=== PATIENT | male | born 1975 | race American Indian/Alaskan Native ===

== ENCOUNTER 2020-04-22 11:57 | Emergency (ER) | payer SELFPAY ==
--- NOTE | 2020-04-22 12:18 | Emergency Department Report ---
Blank Doc - Documentation Documentation: 44-year-old male that presents with uncontrolled HTN and flank pain. This initial assessment/diagnostic orders/clinical plan/treatment(s) is/are subject to change based on patient's health status, clinical progression and re- assessment by fellow clinical providers in the ED. Further treatment and workup at subsequent clinical providers discretion. Patient/guardians urged not to elope from the ED as their condition may be serious if not clinically assessed and managed. Initial orders include: 1- Patient sent to [facility] for further evaluation and treatment 2- labs/UA- r/o HTN emergency
[2020-04-22 12:55] LABS: Basophils % (Auto) 0.5 % (0.0-1.8); Eosinophils % (Auto) 0.7 % (0.0-4.3); Hematocrit 42.7 % (35.5-45.6); Hemoglobin 14.6 gm/dl (11.8-15.2); Lymphocytes # (Auto) 1.1 K/mm3 (1.2-5.4); Lymphocytes % (Auto) 28.4 % (13.4-35.0); Mean Corpuscular HGB Conc 34 % (32-34); Mean Corpuscular Volume 84 fl (84-94); Monocytes # (Auto) 0.4 K/mm3 (0.0-0.8); Monocytes % (Auto) 10.6 % (0.0-7.3); Platelet Count 180 K/mm3 (140-440); Red Blood Count 5.11 M/mm3 (3.65-5.03); Red Cell Distribution Width 14.7 % (13.2-15.2)
[2020-04-22 13:16] LABS: Calcium 8.4 mg/dL (8.4-10.2)
[2020-04-22 13:21] LABS: Bilirubin,Urine NEG (Negative); Blood,Urine SM (Negative); Color,Urine Yellow (Yellow); Mucus,Urine FEW /HPF; Urobilinogen,Urine < 2.0 mg/dL (<2.0)
[2020-04-22 13:24] LABS: Protein,Urine >500 mg/dL (Negative)
--- NOTE | 2020-04-22 14:38 | Emergency Department Report ---
ED General Adult HPI - General Chief complaint: Back Pain/Injury Stated complaint: BLOOD PRESSURE PUI?: No Time Seen by Provider: 04/22/20 12:16 Source: patient Mode of arrival: Ambulatory Limitations: No Limitations - History of Present Illness Initial comments: CC: "I just need my blood pressure checked." HPI: This is a 44-year-old male with history of severe hypertension and chronic kidney disease who presents with elevated blood pressure. He also wants to check his blood sugar. Patient injured his lower back while lifting heavy furniture on Sunday. He has mild left flank pain without radiation. Pain is worse with motion. No pain at rest. He moved from [place] 6 months ago. He has not had antihypertensive medications at this time. He takes 4 different medications to address his hypertension. -: month(s) (6 months without blood pressure medication, back pain due to injury four days ago) Location: back Severity scale (0 -10): 6 Quality: aching Consistency: intermittent Improves with: rest Worsens with: movement Treatments Prior to Arrival: none - Related Data Previous Rx's Medication Instructions Recorded Last Taken Type Lisinopril/Hydrochlorothiazide 1 tab PO QDAY #30 tab 04/22/20 Unknown Rx [Zestoretic 20-25 mg] Allergies Allergy/AdvReac Type Severity Reaction Status Date / Time No Known Allergies Allergy Unverified 04/22/20 12:11 ED Review of Systems ROS: Stated complaint: BLOOD PRESSURE Other details as noted in HPI Comment: All other systems reviewed and negative Constitutional: denies: fever, malaise Respiratory: denies: cough Gastrointestinal: denies: abdominal pain, nausea, vomiting Genitourinary: denies: hematuria Musculoskeletal: back pain Neurological: headache. denies: numbness, paresthesias ED Past Medical Hx - Past Medical History Previous Medical History?: Yes Hx Hypertension: Yes - Surgical History Past Surgical History?: No - Social History Smoking Status: Never Smoker Substance Use Type: None - Medications Home Medications: Home Medications Medication Instructions Recorded Confirmed Last Taken Type Lisinopril/Hydrochlorothiazide 1 tab PO QDAY #30 tab 04/22/20 Unknown Rx [Zestoretic 20-25 mg] ED Physical Exam - General Limitations: No Limitations General appearance: alert, in no apparent distress - Head Head exam: Present: atraumatic, normocephalic - Eye Eye exam: Present: normal appearance - ENT ENT exam: Present: mucous membranes moist - Neck Neck exam: Present: normal inspection, full ROM - Respiratory Respiratory exam: Present: normal lung sounds bilaterally. Absent: respiratory distress, wheezes, rales, rhonchi - Cardiovascular Cardiovascular Exam: Present: regular rate, normal rhythm, normal heart sounds. Absent: systolic murmur, diastolic murmur, rubs, gallop - GI/Abdominal GI/Abdominal exam: Present: soft, normal bowel sounds. Absent: distended, tenderness, guarding, rebound - Rectal Rectal exam: Present: deferred - Extremities Exam Extremities exam: Present: normal inspection - Neurological Exam Neurological exam: Present: alert, oriented X3 - Psychiatric Psychiatric exam: Present: normal affect, normal mood - Skin Skin exam: Present: warm, dry, intact, normal color. Absent: rash ED Course Vital Signs 04/22/20 04/22/20 12:14 13:39 Temperature 98 F Pulse Rate 88 79 Respiratory 18 17 Rate Blood Pressure 223/127 187/130 [Right] O2 Sat by Pulse 98 96 Oximetry ED Medical Decision Making - Lab Data Result diagrams: 04/22/20 12:30 04/22/20 12:30 Laboratory Results - last 24 hr 04/22/20 04/22/20 04/22/20 12:30 12:30 12:59 WBC 3.9 L RBC 5.11 H Hgb 14.6 Hct 42.7 MCV 84 MCH 29 MCHC 34 RDW 14.7 Plt Count 180 Lymph % (Auto) 28.4 [place] % (Auto) 10.6 H Eos % (Auto) 0.7 Baso % (Auto) 0.5 Lymph # (Auto) 1.1 L [place] # (Auto) 0.4 Eos # (Auto) 0.0 Baso # (Auto) 0.0 Seg Neutrophils % 59.8 Seg Neutrophils # 2.3 Sodium 138 Potassium 3.0 L Chloride 98.7 Carbon Dioxide 25 Anion Gap 17 BUN 18 Creatinine 2.1 H Estimated GFR 35 BUN/Creatinine Ratio 9 Glucose 103 H Calcium 8.4 Urine Color Yellow Urine Turbidity Clear Urine pH 6.0 Ur Specific [place] 1.011 Urine Protein >500 Urine Glucose (UA) Neg Urine Ketones Neg Urine Blood Sm Urine Nitrite Neg Urine Bilirubin Neg Urine Urobilinogen < 2.0 Ur Leukocyte Esterase Neg Urine WBC (Auto) 1.0 Urine RBC (Auto) 5.0 Urine Mucus Few - Medical Decision Making 1. Hypertensive urgency due to medication noncompliance. Patient has known history of CKD. GFR 35 noted with creatinine 2.1 and proteinuria. Patient understands to follow-up with our outpatient medicine physician for further care. I have prescribed lisinopril hydrochlorothiazide. Rapid blood pressure lowering at this time is not indicated. No evidence of endorgan damage. 2. Musculoskeletal back strain: Recommended [id number] medications. Encourage patient to avoid NSAIDs considering renal disease. Vital Signs - 8 hr 04/22/20 04/22/20 12:14 13:39 Temperature 98 F Pulse Rate 88 79 Respiratory 18 17 Rate Blood Pressure 223/127 187/130 [Right] O2 Sat by Pulse 98 96 Oximetry Critical care attestation.: If time is entered above; I have spent that time in minutes in the direct care of this critically ill patient, excluding procedure time. ED Disposition Clinical Impression: Hypertensive urgency, Chronic kidney disease, Low back strain Disposition: DC-01 TO HOME OR SELFCARE Is pt being admited?: No Does the pt Need Aspirin: No Condition: Stable Instructions: Hypertension (ED), Chronic Kidney Disease (ED) Prescriptions: Lisinopril/Hydrochlorothiazide [Zestoretic 20-25 mg] 1 tab PO QDAY #30 tab Referrals: TARA ANDERSON MD [Staff Physician] - 3-5 Days KETURAH COLORADO MD [Staff Physician] - 3-5 Days
[2020-04-22 15:03] VITALS: BP 179/109
== END 2020-04-22 14:56 | disposition home or self-care (01) ==
LOC: ED 11:57
DX: S39.012A Strain of muscle, fascia and tendon of lower back, initial encounter (principal); I12.9 Hypertensive chronic kidney disease with stage 1 through stage 4 chronic kidney disease, or unspecified chronic kidney disease; N18.9 Chronic kidney disease, unspecified; I16.0 Hypertensive urgency; Z79.899 Other long term (current) drug therapy; X50.0XXA Overexertion from strenuous movement or load, initial encounter; Y93.89 Activity, other specified; Y92.89 Other specified places as the place of occurrence of the external cause; Y99.8 Other external cause status
CPT/HCPCS: 36415; 80048; 81001; 85025; 99283